=== PATIENT | male | born 1985 | race Caucasian/White ===

== ENCOUNTER 2020-11-27 23:39 | Emergency (ER) | payer MEDICAID ==
[~2020-11-27] VITALS: Ht 170.2 cm; Wt 79.0 kg
[2020-11-28] MEDS ORDERED: IBUP-2028 MT (04:19)
[2020-11-28 04:39] VITALS: BP 152/91
== END 2020-11-28 04:41 | disposition home or self-care (01) ==
LOC: ER 23:39
DX: S02.31XA Fracture of orbital floor, right side, initial encounter for closed fracture (principal); S02.841A Fracture of lateral orbital wall, right side, initial encounter for closed fracture; Y04.2XXA Assault by strike against or bumped into by another person, initial encounter; Y93.89 Activity, other specified; Y92.89 Other specified places as the place of occurrence of the external cause; I10 Essential (primary) hypertension; E11.9 Type 2 diabetes mellitus without complications; E78.00 Pure hypercholesterolemia, unspecified
CPT/HCPCS: 70486; 99285